=== PATIENT | female | born 1965 | race Caucasian/White ===

== ENCOUNTER 2020-10-29 05:31 | Outpatient (RCR) | payer MEDICARE ==
[~2020-10-29] VITALS: Ht 157.5 cm; Wt 90.8 kg
[~2020-10-29 05:31] MED LIST: ACYC800T PO; AMLO-251 PO; ATOR40TA70 PO; DESI25TA; DULO60CA6; MTP100TCR PO; OXYC-12; PARO-49 PO; PRD20T PO; PREG50C; SERT50TA2 PO
== END 2020-10-29 15:23 | disposition home or self-care (01) ==
LOC: PREOP 05:31
PROVIDERS: ATTEND Surgery
DX: Z01.812 Encounter for preprocedural laboratory examination (principal); R19.5 Other fecal abnormalities; Z20.822 Contact with and (suspected) exposure to COVID-19
CPT/HCPCS: 87635

== ENCOUNTER 2020-11-02 08:53 | Day surgery (SDC) | payer MEDICARE, MEDICAID ==
[~2020-11-02] VITALS: Ht 157.5 cm; Wt 91.0 kg
[2020-11-02] MEDS ORDERED: LACTATED RINGERS 1,000 ML IV ONE (08:57)
[2020-11-02 09:16] VITALS: BP 137/70
[2020-11-02] MEDS ORDERED: LACTATED RINGERS 1,000 ML IV STA (09:18)
--- NOTE | 2020-11-02 10:05 | Progress Note-Pre Operative ---
Pre-Operative Progress Note H&P Reviewed The H&P was reviewed, patient examined and no changes noted. Time Seen by Provider: 10:01 Date H&P Reviewed: Nov 02, 2020 Time H&P Reviewed: 10:02 Pre-Operative Diagnosis: GERD, Gastritis, +CologuaANTONIO Taylor DO Nov 02, 2020 10:05
[2020-11-02] MEDS ORDERED: proPOfol 200 MG/20 ML (DIPRIVAN) VIAL IV ONE ×2 (10:26→11:04)
[2020-11-02] MEDS ORDERED: MIDAZOLAM 2 MG/2 ML (VERSED) VIAL ONE (10:26)
[2020-11-02] MEDS ORDERED: KETAMINE/NaCl 50 MG/5 ML SYRINGE (ED ONLY) ONE (10:26)
[2020-11-02] MEDS ORDERED: HURRICAINE EXT TUBE (BENZOCAINE) ONE (10:28)
[2020-11-02] MEDS ORDERED: HURRICAINE EXT TUBE (BENZOCAINE) XX ONE (11:00)
[2020-11-02 11:20] VITALS: BP 90/52
[2020-11-02 11:25] VITALS: BP 94/54
--- NOTE | 2020-11-02 11:25 | Progress Note-Post Operative ---
Post-Operative Progess Note Surgeon (s)/Interventional Technologist (s) Surgeon ANTONIO SCHMITT DO Interventional Technologist: ROB Currie Pre-Operative Diagnosis GERD, Gastritis, +Cologuard Post-Operative Diagnosis Gastritis Esophagitis Polyps Diverticula Hemorrhoids Procedure & Operative Findings Date of Procedure 11/02/20 Procedure Performed/Findings EGD with bx Colon with snare colon with cold bx Anesthesia Type IV sedation by Anesthesia Estimated Blood Loss Estimated blood loss (mL): scant Specimens/Packing Specimens Removed antral bx body of stomach bx GE jxn Cecal polyp Sigmoid polyp x 2 ANTONIO SCHMITT DO Nov 02, 2020 11:25
--- NOTE | 2020-11-02 11:26 | Endoscopy Discharge Instruct ---
Endo Procedure/Findings Findings 1.: Gastritis, Other Findings (Esophagitis) 2.: Polyp 3.: Diverticulosis 4.: Internal Hemorrhoids Discharge Instructions - Activity: You might feel a little sleepy until tomorrow. This is due to the medicine you received to relax you. Until tomorrow, you should: NOT drive a car, operate machinery or power tools. NOT drink any alcoholic beverages. NOT make any important decisions or sign importortant papers. Do not return to work until tomorrow, unless otherwise instructed. Resume previous activities tomorrow. Diet: Start by taking liquids. If you tolerate liquids, advance to solid food. 1.: EGD in 1 year 2.: Colonscopy in 3 years Notify Physician - If you experience excessive bleeding, unusual abdominal pain, fever, or chest pain, contact your doctor immediately. ANTONIO SCHMITT DO Nov 02, 2020 11:26
--- NOTE | 2020-11-02 11:29 | Anesthesia-General Post-Op ---
MAC Patient Condition Mental Status/LOC: Same as Preop Cardiovascular: Satisfactory Nausea/Vomiting: Absent Respiratory: Satisfactory Pain: Controlled Complications: Absent Post Op Complications Complications None Follow Up Care/Instructions Patient Instructions None needed. Anesthesiology Discharge Order Discharge Order Patient is doing well, no complaints, stable vital signs, no apparent adverse anesthesia problems. AIMEE TERRY DO Nov 02, 2020 11:29
[2020-11-02 11:55] VITALS: BP 123/81
[2020-11-02 12:00] VITALS: BP 123/81
--- NOTE | 2020-11-02 20:08 | OPERATIVE REPORT ---
DATE OF SERVICE: 11/02/2020 PREOPERATIVE DIAGNOSES: Gastroesophageal reflux disease, gastritis and positive Cologuard. POSTOPERATIVE DIAGNOSES: Gastritis, esophagitis, colon polyps, diverticula, internal hemorrhoids. PROCEDURES: 1. EGD with biopsy. 2. Colonoscopy with snare polypectomy. 3. Colonoscopy with cold biopsy. SURGEON: Gilmar Monet, ASSISTANT ART DIRECTOR: Julio César Garrido, MS3 ANESTHESIA: IV sedation by anesthesiologist. SPECIMEN: Biopsy from the antrum, biopsy of body of stomach, biopsy of the GE junction as well as cecal polyp and 2 sigmoid polyps. BLOOD LOSS: Scant. FLUIDS: Per anesthesia. POSTOPERATIVE CONDITION: Stable. INDICATION FOR PROCEDURE: The patient is a 55-year-old female who had a positive Cologuard, also has been complaining of some GERD and gastritis symptoms, needed a workup. FINDINGS: The patient had gastritis and esophagitis. In the colon, she had a flat polyp in the cecum and then she had 2 large polyps in the sigmoid colon. Also noted to have diverticula and internal hemorrhoids. PROCEDURE NOTE: After informed consent was obtained, the patient was brought to the endoscopy suite, placed in bed in left lateral decubitus position. She was administered IV sedation by the anesthesia who then monitored her vitals the entire time, heart rate, blood pressure and pulse ox, started with the EGD, placing scope down the mouth through the esophagus into the stomach, down at the GE junction noted some changes, took a picture and then took a picture of the antrum that was very erythematous, pushed into the duodenum. Duodenum looked fine. Pulled back and did a biopsy of the antrum. Retroflexed the scope, saw lot of changes and erythema in the body, did a biopsy here, then pulled the scope into the GE junction, did 2 biopsies here, pushed the scope back into the stomach, suctioned all the air out and then pulled the scope up the esophagus and out the mouth. Switched camera, switched gloves, went down below, started the colonoscopy. Pushed all the way into about 160 cm, able to get all the way to cecum, took a picture of appendiceal orifice and noted the ileocecal valve. There was a polyp in the cecum as flat, unable to get a snare, so did a cold biopsy of this and then slowly withdrew the scope insufflating to look circumferential at the luna looking the cecum, up the ascending colon to the hepatic flexure, then down the transverse colon to the splenic flexure, into the descending colon, where I saw some diverticula, took a picture and then down into the sigmoid. In the sigmoid, saw a large pedunculated polyp, did a snare polypectomy to remove this completely and almost all of the stalk and then saw another polyp. Next to this, did another snare polypectomy, able to suction out the smaller polyp, but the large pedunculated polyp had actually suctioned up to the scope, pulled the scope all the way out, then pushed the scope back in and then continued down the sigmoid into the rectum, retroflexed in the rectal vault, saw some small internal hemorrhoids, took a picture of this and then removed the scope. The patient tolerated the procedure, recovered in endoscopy suite. Job ID: [id number] DocumentID: [id number] Dictated Date: 11/02/2020 16:05:12 Water Hauler Date: 11/02/2020 20:07:54 Dictated By: GILMAR MONET DO
== END 2020-11-02 12:00 | disposition home or self-care (01) ==
LOC: ENDO 08:53
PROVIDERS: ATTEND Surgery
DX: D12.0 Benign neoplasm of cecum (principal); D12.5 Benign neoplasm of sigmoid colon; K29.50 Unspecified chronic gastritis without bleeding; K21.00 Gastro-esophageal reflux disease with esophagitis, without bleeding; K57.30 Diverticulosis of large intestine without perforation or abscess without bleeding; K64.9 Unspecified hemorrhoids; I10 Essential (primary) hypertension; F32.9 Major depressive disorder, single episode, unspecified; F41.9 Anxiety disorder, unspecified; F17.210 Nicotine dependence, cigarettes, uncomplicated; Z79.899 Other long term (current) drug therapy; Z91.041 Radiographic dye allergy status; Z90.710 Acquired absence of both cervix and uterus; Z80.42 Family history of malignant neoplasm of prostate